=== PATIENT | female | born 2000 | race Caucasian/White ===

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

== ENCOUNTER 2018-06-21 09:57 | Emergency (ER) | payer OTHER ==
--- NOTE | 2018-06-21 10:08 | UC ---
Throat Pain/Nasal Tacho HPI - HPI Summary HPI Summary: 18 y/o female presents to the urgent care c/o sore throat for the past 2 days. Pt reports symptoms sorsen this morning when she woke up this morning and had fever of 101.2F and episode of vomiting. She took Naproxen 500mg PO and symptoms resolve. she still w/ nausea. She ate her breakfast and she is is drinking fluids. She also has a dry cough and mild REDMOND. Pt denies nasal congestion, ear pain, rash, SOB, chest pain, abdominal pain, diarrhea. Pt is UTD w/ all vaccines for her age. - History of Current Complaint Stated Complaint: SORE THROAT FEVER VOMITING Time Seen by Provider: 06/21/18 10:07 Hx Obtained From: Patient Hx Last Menstrual Period: 06/02/2018 ?: No Onset/Duration: Gradual Onset, Lasting Days - 2 days, Still Present, Worse Since - today Severity: Moderate Pain Intensity: 5 Pain Scale Used: 0-10 Numeric Cough: Nonproductive Associated Signs & Symptoms: Positive: Dysphagia, Fever, Vomiting - 1 episode - Epiglottits Risk Factors Epiglottis Risk Factors: Negative - Allergies/Home Medications Allergies/Adverse Reactions: Allergies Allergy/AdvReac Type Severity Reaction Status Date / Time No Known Allergies Allergy Verified 06/21/18 10:10 Home Medications: Home Medications Naproxen [Naproxen 250 mg tab] 2 tab PO BID PRN 06/21/18 [History Confirmed 05/01] PMH/Surg Hx/FS Hx/Imm Hx Previously Healthy: Yes - Pt denies PMHX - Surgical History Surgical History: Yes Surgery Procedure, Year, and Place: Tonsils and adenoids February 2013, LEFT ACL RECONSTRUCTION 2014 - Family History Known Family History: Positive: Diabetes - Social History Occupation: Student Lives: With Family Alcohol Use: None Substance Use Type: None Smoking Status (MU): Never Smoked Tobacco Have You Smoked in the Last Year: No - Immunization History Most Recent Influenza Vaccination: Fall 2015 Most Recent Pneumonia Vaccination: not indicated Vaccination Up to Date: Yes Review of Systems Constitutional: Fever, Chills Skin: Negative Eyes: Negative ENT: Sore Throat Respiratory: Cough - dry Cardiovascular: Negative Gastrointestinal: Negative Genitourinary: Negative Motor: Negative Neurovascular: Negative Musculoskeletal: Negative Neurological: Headache Psychological: Negative Is Patient Immunocompromised?: No All Other Systems Reviewed And Are Negative: Yes Physical Exam - Summary Physical Exam Summary: VITAL SIGNS: Reviewed. GENERAL: Patient is a well developed and nourished female who is sitting comfortable in the examining table. Patient is not in any acute respiratory distress. HEAD AND FACE: No signs of trauma. No ecchymosis, hematomas or skull depressions. No sinus tenderness. EYES: PERRLA, EOMI x 2, No injected conjunctiva, no nystagmus. No photophobia. EARS: Hearing grossly intact. Ear canals and tympanic membranes are within normal limits. MOUTH: Positive pharynx with erythema, exudates, palatal petechiae. B/L tonsillar enlargement with no exudate. Uvula in midline. NECK: Supple, trachea is midline, Positive anterior cervical lymphadenopathy, no JVD, no carotid bruit, no c-spine tenderness, neck with full ROM. No meningeal signs, no Kernig's or brudzinskis signs. CHEST: Symmetric, no tenderness at palpation LUNGS: Clear to auscultation bilaterally. No wheezing or crackles. CVS: Regular rate and rhythm, S1 and S2 present, no murmurs or gallops appreciated. ABDOMEN: Soft, non-tender. No signs of distention. No rebound no guarding, and no masses palpated. Bowel sounds are normal. EXTREMITIES: FROM in all major joints, no edema, no cyanosis or clubbing. NEURO: Alert and oriented x 3. No acute neurological deficits. Speech is normal and follows commands. SKIN: Dry and warm Triage Information Reviewed: Yes Throat Pain/Nasal Course/Dx - Course Course Of Treatment: 18 y/o female presents to the urgent care c/o sore throat for the past 2 days. Pt reports symptoms sorsen this morning when she woke up this morning and had fever of 101.2F and episode of vomiting. She took Naproxen 500mg PO and symptoms resolve. she still w/ nausea. She ate her breakfast and she is is drinking fluids. She also has a dry cough and mild REDMOND. Pt denies nasal congestion, ear pain, rash, SOB, chest pain, abdominal pain, diarrhea. Pt is UTD w/ all vaccines for her age.Hx obtained. Pt w/ pharyngitis on examiantion. Rapid strep ordered, result: negative. Viral pharyngitis. Pt w/ Nausea. Pt given Zofran PO to alleviate symptoms. pt tolerated well medication given by nurse. Pt Rx Zofran PO to alleviates symptomsof N/V. Advised to continue w/ Naproxen to control fever and pain. also advised on hand washing to avoid spreading. Pt advised to increase hydration, rest, eat well and avoid strenuous exercise. If symptoms do not improve or worsen advised to return to the urgent care or f/u with her PCP for further evaluation and treatment. Pt understood and agreed - Differential Dx/Diagnosis Differential Diagnosis/HQI/PQRI: Influenza, Laryngitis, Mononucleosis, Pharyngitis, Tonsillitis Provider Diagnoses: 1- viral pharyngitis. 2- Nausea and vomiting Discharge - Sign-Out/Discharge Documenting (check all that apply): Patient Departure - D/c home All imaging exams completed and their final reports reviewed: No Studies - Discharge Plan Condition: Stable Disposition: HOME Prescriptions: Ondansetron ODT TAB* [Zofran 4 MG Odt TAB*] 4 mg PO Q6H PRN #12 tab.odt PRN Reason: Vomiting Patient Education Materials: Pharyngitis (ED), Acute Nausea and Vomiting (ED) Referrals: [facility] [[facility] Care Provider[facility] - 3 Days Additional Instructions: 1-continue taking Naproxen PO q6-8hrs prn as instructed after meals to alleviate pain and swelling. Increase fluid intake, eat well, rest and avoid strenuous exercise 2-Magaly take Zofran PO as directed to alleviate nausea and vomiting. 3-If symptoms do not improve or worsen please return to the urgent care or f/u with your PCP in 3 days for further evaluation and treatment. - Billing Disposition and Condition Condition: STABLE Disposition: Home
[2018-06-21 10:09] VITALS: BP 125/81
[2018-06-21] MEDS ORDERED: Ondansetron ODT TAB* 4 MG PO ONE (10:24)
== END 2018-06-21 11:02 | disposition home or self-care (01) ==
LOC: UCEAST 09:57
DX: J02.8 Acute pharyngitis due to other specified organisms (principal); R11.2 Nausea with vomiting, unspecified
CPT/HCPCS: 87651; 99212; A9270-GY; G0463

== ENCOUNTER 2024-06-28 12:11 | Inpatient (IN) ==
[2024-06-28] MEDS ORDERED: Lidocaine 1% VIAL 10 MG/ML 30 ML VIAL INJ PRN (13:48)
[2024-06-28] MEDS: miSOPROStol 100 mcg TAB VAGINAL ONE (14:27)
[2024-06-28 14:53] LABS: Urine Benzodiazepine Screen None Detected (None Detect); Urine Cannabinoids Screen None Detected (None Detect); Urine Opiates Screen None Detected (None Detect)
[2024-06-28 16:03] LABS: ABS Basophils 0.1 10^3/uL (0.0-0.1); ABS Eosinophils 0.3 10^3/uL (0.0-0.5); ABS Lymphocytes 2.3 10^3/uL (1.0-4.8); ABS Monocytes 0.6 10^3/uL (0.0-0.9); ABS Neutrophils 9.3 10^3/uL (1.5-7.6); Hematocrit 26.9 % (35-45); Hemoglobin 8.8 g/dL (11.5-14.3); Lymphocyte % 18.3 %; Mean Corpuscular Hemoglobin 25.8 pg (27-33); Mean Corpuscular Hgb Conc 32.8 g/dL (31-36); Mean Corpuscular Volume 78.6 fL (80-97); Platelet Count 242 10^3/uL (150-450); Red Blood Count 3.42 10^6/uL (3.63-4.92); Red Cell Distribution Width 16.9 % (12-17); White Blood Count 12.5 10^3/uL (3.8-11.8)
[2024-06-28 17:08] LABS: HIV 4th Generation Nonreactive (Nonreactive)
[2024-06-28] MEDS: Nalbuphine 10 MG/ML 1 ML VIAL IV PRN (19:14)
[2024-06-28] MEDS: Prochlorperazine 5 mg/ml 2 ml VIAL (10 mg) IV PRN (19:14)
[2024-06-28] MEDS: Lactated Ringers 1000 ml BAG 1,000 ML IV ONE (21:00)
[2024-06-28] MEDS ORDERED: Lidocaine 1.5% EPI 1:200,000 30 ML SDV ONE (21:32)
[2024-06-28] MEDS: Lactated Ringers 1000 ml BAG 1,000 ML IV SCH (21:45)
[2024-06-28] MEDS: OBEPIDURAL (200 ML) 200 ML EPIDURAL ONE (22:00)
[2024-06-28] MEDS: Oxytocin in LR 20,000 MILLI.UNIT/1,000 ML BAG IV ONE (23:10)
[2024-06-28] MEDS ORDERED: Phenylephrine 40 mcg/mL 10mL (400mcg) SYRINGE IV PUSH PRN ×2 (23:24)
[2024-06-28] MEDS ORDERED: Lactated Ringers 1000 ml BAG 1,000 ML IV ONE (23:24)
[2024-06-28] MEDS ORDERED: Sodium Citrate/Citric Acid LIQ 15 ML UDC PO PRN (23:24)
[2024-06-28] MEDS ORDERED: OBEPIDURAL (200 ML) 200 ML EPIDURAL SCH (23:45)
[2024-06-28] MEDS ORDERED: Lactated Ringers 1000 ml BAG 1,000 ML IV SCH ×2 (23:45)
[2024-06-28] MEDS ORDERED: Witch Hazel PAD JAR TOPICAL PRN (23:51)
[2024-06-28] MEDS ORDERED: Glycerin ADULT 2.4 gm SUPP PR PRN (23:51)
[2024-06-28] MEDS ORDERED: Oxytocin in LR 20,000 MILLI.UNIT/1,000 ML BAG IV SCH (23:55)
[2024-06-29 01:40] LABS: Urine Appearance Clear; Urine Bilirubin Negative (Negative); Urine Blood Negative (Negative); Urine Color Light-Yellow; Urine Glucose Negative (Negative); Urine Ketones Negative (Negative); Urine Nitrite Negative (Negative); Urine Protein Negative (Negative); Urine Specific Gravity 1.026 (1.002-1.030); Urine Urobilinogen Negative (Negative); Urine pH 6.5 (5.0-8.0)
[2024-06-29] MEDS: Buffered Lidocaine 1% SYRIN 1 ml INTRADERM ONE (03:18)
[2024-06-29] MEDS: Phenylephrine 40 mcg/mL 10mL (400mcg) SYRINGE ONE (03:19)
[2024-06-29] MEDS: Methylergonovine 0.2 mg AMPULE 1 ml AMP ONE (06:23)
[2024-06-29] MEDS: Methylergonovine 0.2 mg AMPULE 1 ml AMP IM ONE (06:23)
[2024-06-29 07:46] LABS: ABS Basophils 0.1 10^3/uL (0.0-0.1); ABS Eosinophils 0.2 10^3/uL (0.0-0.5); ABS Lymphocytes 2.7 10^3/uL (1.0-4.8); ABS Monocytes 0.8 10^3/uL (0.0-0.9); ABS Neutrophils 10.7 10^3/uL (1.5-7.6); ABS Nucleated RBC 0.01 10^3/ul; Eosinophil % 1.6 %; Hematocrit 24.7 % (35-45); Hemoglobin 8.1 g/dL (11.5-14.3); Lymphocyte % 18.3 %; Mean Corpuscular Hemoglobin 25.6 pg (27-33); Mean Corpuscular Hgb Conc 32.7 g/dL (31-36); Mean Corpuscular Volume 78.4 fL (80-97); Mean Platelet Volume 9.7 fL (7.5-11.2); Nucleated Red Blood Cells % 0.1 %/100WBC (0.0-0.8); Platelet Count 228 10^3/uL (150-450); Red Blood Count 3.15 10^6/uL (3.63-4.92); Red Cell Distribution Width 16.9 % (12-17); White Blood Count 14.5 10^3/uL (3.8-11.8)
[2024-06-30 07:32] LABS: ABS Basophils 0.1 10^3/uL (0.0-0.1); ABS Eosinophils 0.4 10^3/uL (0.0-0.5); ABS Lymphocytes 2.8 10^3/uL (1.0-4.8); ABS Monocytes 0.6 10^3/uL (0.0-0.9); ABS Neutrophils 8.1 10^3/uL (1.5-7.6); Hematocrit 25.2 % (35-45); Hemoglobin 8.1 g/dL (11.5-14.3); Lymphocyte % 23.5 %; Mean Corpuscular Hemoglobin 25.6 pg (27-33); Mean Corpuscular Hgb Conc 32.2 g/dL (31-36); Mean Corpuscular Volume 79.6 fL (80-97); Mean Platelet Volume 9.8 fL (7.5-11.2); Platelet Count 233 10^3/uL (150-450); Red Blood Count 3.16 10^6/uL (3.63-4.92); Red Cell Distribution Width 17.5 % (12-17)
[2024-06-30 07:52] VITALS: BP 111/67
[2024-06-30] MEDS: Dibucaine 1% OINT 28.35 GM TUBE PR PRN (08:39)
[2024-06-30] MEDS: Iron Sucrose 200 MG in NS 0.9% 100 ml BAG 100 ML IVPB ONE (11:32)
[2024-06-30] MEDS: Varicella Virus Vaccine Live 0.5 ML VIAL SUBCUT ONE (16:36)
== END 2024-06-30 16:45 | disposition home or self-care (01) | DRG 560 ==
LOC: MCHOBOUT 12:11 → MCHOB 13:41
PROVIDERS: ATTEND Midwife